=== PATIENT | male | born 1965 | race Caucasian/White ===

== ENCOUNTER 2021-08-01 14:38 | Outpatient (CLI) | payer BC ==
[~2021-08-01 14:38] MED LIST: AMOX500C2 PO; HYDR1CAP2 PO; LSNP20T PO; SIMV40TA4 PO
== END 2021-08-01 15:00 ==
LOC: SLEEP 14:38
PROVIDERS: ATTEND Nurse Practitioner
DX: G47.33 Obstructive sleep apnea (adult) (pediatric) (principal); G47.10 Hypersomnia, unspecified
CPT/HCPCS: G0399

== ENCOUNTER → 2021-08-09 | Outpatient (CLI) | payer BC ==
--- NOTE | 2021-08-09 10:40 | Diagnostic Imaging Report ---
INDICATION: Left knee pain. EXAMINATION: Left knee, 4 views. FINDINGS: Standing views show a uzif-jb-dybr appearance in the medial compartment. There are marked hypertrophic changes along both the medial and lateral femoral condyles. Patellofemoral joint also shows narrowing of the joint space with marked hypertrophic change. No fractures are demonstrated. There is mild chondrocalcinosis. IMPRESSION: Rather severe tricompartmental osteoarthritic changes. No acute abnormality is noted. Dictated by: Dictated on workstation # [id number]
== END ==
LOC: ORTHO 09:12
PROVIDERS: ATTEND Orthopaedic Surgery
DX: M17.12 Unilateral primary osteoarthritis, left knee (principal)
CPT/HCPCS: 73564; G0463; 99203

== ENCOUNTER → 2021-08-12 | Outpatient (CLI) | payer BC ==
[2021-08-12 16:41] LABS: BASOPHILS # (AUTO) 0.1 10^3/uL (0.0-0.1); BASOPHILS % (AUTO) 1 % (0-10); EOSINOPHILS # (AUTO) 0.2 10^3/uL (0.0-0.3); EOSINOPHILS % (AUTO) 2 % (0-10); HEMATOCRIT 43 % (40-54); LYMPHOCYTES # (AUTO) 1.5 X 10^3 (1.0-4.0); LYMPHOCYTES % (AUTO) 18 % (12-44); MEAN CORPUSCULAR HEMOGLOBIN 29 pg (25-34); MEAN CORPUSCULAR HGB CONC 33 g/dL (32-36); MEAN CORPUSCULAR VOLUME 89 fL (80-99); MEAN PLATELET VOLUME 10.3 fL (9.0-12.2); MONOCYTES # (AUTO) 0.9 X 10^3 (0.0-1.0); MONOCYTES % (AUTO) 11 % (0-12); NEUTROPHILS # (AUTO) 5.9 X 10^3 (1.8-7.8); NEUTROPHILS % (AUTO) 69 % (42-75); PLATELET COUNT 257 10^3/uL (130-400); WHITE BLOOD COUNT 8.5 10^3/uL (4.3-11.0)
[2021-08-12 16:50] LABS: POTASSIUM 3.9 MMOL/L (3.6-5.0)
[2021-08-12 16:52] LABS: CALCIUM 9.1 MG/DL (8.5-10.1)
[2021-08-12 16:56] LABS: CREATININE SERUM 0.82 MG/DL (0.60-1.30)
--- NOTE | 2021-08-12 17:02 | Diagnostic Imaging Report ---
INDICATION: Foot pain. EXAMINATION: Left foot, 3 views, on 08/12/2021. FINDINGS: There is soft tissue prominence about the forefoot, nonspecific in nature, with no underlying acute fracture or dislocation appreciated. Narrowing and spurring are seen at the 1st metatarsophalangeal joint. There is plantar calcaneal spurring. IMPRESSION: Nonspecific soft tissue swelling with no acute osseous abnormality. Dictated by: Dictated on workstation # [id number]
[2021-08-12 17:05] LABS: BILIRUBIN,URINE NEGATIVE (NEGATIVE); CLARITY,URINE CLEAR; COLOR,URINE YELLOW; GLUCOSE, URINE (UA) NEGATIVE (NEGATIVE); KETONES,URINE NEGATIVE (NEGATIVE); LEUKOCYTE ESTERASE ,URINE NEGATIVE (NEGATIVE); NITRITE,URINE NEGATIVE (NEGATIVE); PROTEIN,URINE NEGATIVE (NEGATIVE)
--- NOTE | 2021-08-12 17:05 | Diagnostic Imaging Report ---
INDICATION: Preop for left knee surgery. EXAMINATION: PA and lateral views of the chest were obtained at 4:43 p.m. Heart and mediastinal silhouette are normal in appearance. The lungs are clear. There is no pneumothorax or pleural fluid. IMPRESSION: No acute process in the chest. Dictated by: Dictated on workstation # [id number]
[2021-08-12 17:06] LABS: INR 0.9 (0.8-1.4); PROTHROMBIN TIME PATIENT 12.8 SEC (12.2-14.7)
[2021-08-12 17:27] LABS: BACTERIA,URINE NEGATIVE /HPF; SQUAMOUS EPITHELIAL CELL,UR RARE /HPF; WBC,URINE 0-2 /HPF
== END ==
LOC: RT 15:46
PROVIDERS: ATTEND Orthopaedic Surgery
DX: Z01.818 Encounter for other preprocedural examination (principal); M79.672 Pain in left foot; M79.89 Other specified soft tissue disorders
CPT/HCPCS: 36415; 71046; 73630; 80048; 81000; 85025; 85610; 85730

== ENCOUNTER 2021-08-18 08:10 | Outpatient (RCR) | payer BC ==
[~2021-08-18] VITALS: Ht 193.1 cm; Wt 131.5 kg
[2021-08-18] MEDS ORDERED: ROSU5TAB13 PO (08:27)
[2021-08-18] MEDS ORDERED: AMLO-251 PO (08:27)
[2021-08-18 09:09] VITALS: BP 139/80
[2021-08-18] MEDS ORDERED: MV-M1TAB20 PO (09:13)
[2021-08-18] MEDS ORDERED: ACET-2840 PO (09:13)
[2021-08-18] MEDS ORDERED: ZINC (09:13)
[2021-08-18] MEDS ORDERED: METF-397 PO (09:13)
[2021-08-18] MEDS ORDERED: ASPI-999 PO (11:15)
[2021-08-18] MEDS ORDERED: OMEP40CA6 PO (11:15)
[2021-08-18] MEDS ORDERED: METO100T12 PO (11:15)
[2021-08-18] MEDS ORDERED: GBPN600T PO (11:15)
== END 2021-08-19 15:34 | disposition home or self-care (01) ==
LOC: PREOP 08:10 → EDSTATUS 08:30 → PREOP 08-19 15:34
PROVIDERS: ATTEND Orthopaedic Surgery
DX: Z01.812 Encounter for preprocedural laboratory examination (principal); U07.1 COVID-19; M17.12 Unilateral primary osteoarthritis, left knee
CPT/HCPCS: 87636

== ENCOUNTER → 2021-11-03 | Outpatient (CLI) | payer BC ==
[~2021-11-03] MED LIST changes: +ACET-2840 PO; +AMLO-251 PO; +ASPI-999 PO; +GBPN600T PO; +METF-397 PO; +METO100T12 PO; +MV-M1TAB20 PO; +OMEP40CA6 PO; +ROSU5TAB13 PO; +ZINC
[2021-11-03 10:48] LABS: BASOPHILS # (AUTO) 0.1 10^3/uL (0.0-0.1); BASOPHILS % (AUTO) 1 % (0-10); EOSINOPHILS # (AUTO) 0.2 10^3/uL (0.0-0.3); EOSINOPHILS % (AUTO) 2 % (0-10); HEMATOCRIT 43 % (40-54); HEMOGLOBIN 14.2 g/dL (13.3-17.7); LYMPHOCYTES # (AUTO) 1.5 10^3/uL (1.0-4.0); LYMPHOCYTES % (AUTO) 19 % (12-44); MEAN CORPUSCULAR HEMOGLOBIN 29 pg (25-34); MEAN CORPUSCULAR HGB CONC 33 g/dL (32-36); MEAN CORPUSCULAR VOLUME 88 fL (80-99); MEAN PLATELET VOLUME 10.5 fL (9.0-12.2); MONOCYTES % (AUTO) 12 % (0-12); NEUTROPHILS # (AUTO) 5.2 10^3/uL (1.8-7.8); NEUTROPHILS % (AUTO) 65 % (42-75); PLATELET COUNT 222 10^3/uL (130-400)
[2021-11-03 10:57] LABS: BILIRUBIN,URINE NEGATIVE (NEGATIVE); CLARITY,URINE CLEAR; COLOR,URINE YELLOW; GLUCOSE, URINE (UA) NEGATIVE (NEGATIVE); KETONES,URINE NEGATIVE (NEGATIVE); LEUKOCYTE ESTERASE ,URINE NEGATIVE (NEGATIVE); NITRITE,URINE NEGATIVE (NEGATIVE); PROTEIN,URINE NEGATIVE (NEGATIVE)
[2021-11-03 11:02] LABS: BACTERIA,URINE TRACE /HPF; SQUAMOUS EPITHELIAL CELL,UR RARE /HPF
[2021-11-03 11:10] LABS: POTASSIUM 3.7 MMOL/L (3.6-5.0)
[2021-11-03 11:15] LABS: CREATININE SERUM 0.78 MG/DL (0.60-1.30)
== END ==
LOC: LAB 10:25
PROVIDERS: ATTEND Orthopaedic Surgery
DX: M17.12 Unilateral primary osteoarthritis, left knee (principal)
CPT/HCPCS: 36415; 80048; 81000; 85025

== ENCOUNTER 2021-11-10 08:35 | Outpatient (CLI) | payer BC ==
[~2021-11-10] VITALS: Ht 185 cm; Wt 131.5 kg
== END 2021-11-10 08:43 | disposition home or self-care (01) ==
LOC: PREOP 08:35
PROVIDERS: ATTEND Orthopaedic Surgery
DX: Z01.818 Encounter for other preprocedural examination (principal)

== ENCOUNTER 2021-11-21 07:55 | Day surgery (SDC) | payer BC ==
[2021-11-21] VITALS (12 sets, daily range): BP systolic 138–195; BP diastolic 66–127
[~2021-11-21] VITALS: Ht 185 cm; Wt 131.5 kg
[2021-11-21] MEDS ORDERED: TRANEXAMIC ACID 3,000 MG/150 ML NS IRRIGATION IR ONE ×2 (08:30)
[2021-11-21] MEDS ORDERED: ceFAZolin 2 GM/50 ML (PRE-MIXED) IV ONE (08:45)
[2021-11-21] MEDS: LACTATED RINGERS 1,000 ML IV PRN ×2 (09:05→10:50)
[2021-11-21] MEDS ORDERED: fentaNYL INJ 100 MCG/2 ML AMP ONE (09:37)
[2021-11-21] MEDS ORDERED: MIDAZOLAM 2 MG/2 ML (VERSED) VIAL ONE ×2 (09:37→10:29)
[2021-11-21] MEDS ORDERED: METO50TA7 PO (09:56)
[2021-11-21] MEDS ORDERED: LISI40TA9 PO (09:56)
[2021-11-21] MEDS ORDERED: HYDR25TA4 PO (09:56)
[2021-11-21] MEDS ORDERED: BUPIVACAINE 0.5% 30 ML (SENSORCAINE) VIAL ONE (10:11)
--- NOTE | 2021-11-21 10:28 | Progress Note-Pre Operative ---
Pre-Operative Progress Note H&P Reviewed The H&P was reviewed, patient examined and no changes noted. Date Seen by Provider: Nov 21, 2021 Time Seen by Provider: 10:25 Date H&P Reviewed: Nov 21, 2021 Time H&P Reviewed: 10:25 Pre-Operative Diagnosis: Left Knee Primary Osteoarthritis ALEX MARTE MD Nov 21, 2021 10:28
[2021-11-21] MEDS ORDERED: ONDANSETRON 4 MG/2 ML (SDV) Z0FRAN ONE (10:48)
[2021-11-21] MEDS ORDERED: HYDROmorphone 2 MG/ML VIAL (DILAUDID) ONE ×2 (10:57→13:35)
[2021-11-21] MEDS ORDERED: ESMOLOL 100 MG/10 ML (BREVIBLOC) VIAL ONE (10:58)
[2021-11-21] MEDS ORDERED: SEVOFLURANE (ULTANE) 15 ML INHAL SOLN ONE ×2 (11:00→12:53)
[2021-11-21] MEDS ORDERED: proPOfol 200 MG/20 ML (DIPRIVAN) VIAL IV ONE (12:54)
[2021-11-21] MEDS ORDERED: KETOROLAC 30 MG/ML VIAL ONE (13:11)
[2021-11-21] MEDS ORDERED: LABETALOL HCL 20 MG/4 ML VIAL ONE (13:27)
[2021-11-21] MEDS ORDERED: HYDROmorphone 2 MG/ML VIAL (DILAUDID) IV ONE (13:30)
[2021-11-21] MEDS ORDERED: ACETAMINOPHEN 500 MG TAB (TYLENOL) PO PRN (13:30)
[2021-11-21] MEDS ORDERED: MILK OF MAGNESIA 400 MG/5 ML 30 ML UDC PO PRN (13:30)
[2021-11-21] MEDS ORDERED: ONDANSETRON 4 MG/2 ML (SDV) Z0FRAN IV PRN (13:30)
[2021-11-21] MEDS ORDERED: LABETALOL HCL 20 MG/4 ML VIAL IV ONE (13:30)
[2021-11-21] MEDS ORDERED: ONDANSETRON 4 MG/2 ML (SDV) Z0FRAN IVP PRN (13:30)
[2021-11-21] MEDS ORDERED: BISACODYL 5 MG (DULCOLAX) TABLET PO PRN (13:30)
--- NOTE | 2021-11-21 13:40 | Operative Report - Ortho ---
Operative Report Surgeon (s)/Senior Data Analyst (s) Surgeon ALEX MARTE MD Senior Data Analyst n/a Pre-Operative Diagnosis Left Knee Primary Osteoarthritis Post-Operative Diagnosis same Operative Report Date of Procedure: Nov 21, 2021 Name of Procedure Performed: Left Total Knee Arthroplasty Description & Findings After obtaining informed consent and marking the patient in the preoperative holding area, the patient did receive IV antibiotics. Patient was taken to the operating room and anesthesia was induced. Surgical timeout was taken. The left lower extremity was prepped and draped in the usual sterile fashion. Incision was made and carried down to fascia. Arthrotomy was performed on the medial side of the patella. Patella was retracted laterally and knee was flexed. Found to have circumferential osteophtye around the distal femur as well as exposed bone in the medial compartment. Hole was made in the distal femur for the intramedullary distal femoral cutting guide. Resection was made then the femur was sized as a 7. 4-in-1 block for a size [address]. Anterior cut was made and there was no notch. Posterior cut was made followed by the chamfers. Box cut was performed. Lug holes were drilled. Attention was turned to the tibial side, extramedullary tibial guide was put into place and aligned with the tibial crest. It was set to take 2 mm off of the affected medial side. Drop cory was used to confirm alignment. Resection was made and was parallel to the joint line. Tibial bone block was removed. Lamina bunch maker was put into place and the menisci and posterior osteophytes were removed. The knee was trialed with a size 7 femur and a size 7 tibia with a 9 mm poly trial. It was found to come out to full extension and flexed beyond 120 degrees. It was stable to varus and valgus stress throughout its range of motion. This was accepted. Knee was brought out into extension and the patella was prepared for an inset patellar button. Osteophytes were removed from around the perimeter of the patella. Patella tracked well through the trochlear groove of the femur. Trial implants were removed. Tibial tray was pinned and punched. Tibial press fit guide was placed and holes were drilled. The cut bone surfaces were lavaged with pulsatile normal saline. Implants were opened and assembled on the back table. A size 7 press fit tibial component was impacted into place. A size 7 press fit femoral component was impacted into place. Tibial tray was lavaged with saline. A 9 mm thick polyethylene component was locked into placed and the locking mechanism was checked. Knee was brought into extension. Press fit patella component was clamped into place. Betadine soak was performed and then, the knee was irrigated with normal saline. The knee was once again trialed; found to come to full extension, flexed beyond 120 degrees, and was stable to varus and valgus stress. Tourniquet was dropped and electrocautery was used for hemostasis. Fascial layer was closed with #1 Ethibond. The subcutaneous layer was closed with 2-0 Vicryl. The skin was closed with a running subcuticular 3-0 V-loc. Wound was dressed with steri- strips, xeroform, 4x4s, ABD, webril, and HEENA wrap. Patient tolerated the procedure well and was stable to the recovery room. Anesthesia Type General plus regional Estimated Blood Loss 150 mL Specimen(s) collected/removed None ALEX MARTE MD Nov 21, 2021 13:40
--- NOTE | 2021-11-21 13:48 | Diagnostic Imaging Report ---
INDICATION: Total knee arthroplasty. Postoperative check. EXAMINATION: Left knee, 11/21/2021. FINDINGS: Two views of the knee. There is a total knee arthroplasty which appears intact and well aligned. Subcutaneous air with soft tissue swelling and a joint effusion noted consistent with recent surgery. IMPRESSION: 1. Uncomplicated-appearing expected postoperative findings. Dictated by: Dictated on workstation # [id number]
--- NOTE | 2021-11-21 15:27 | Physical Therapy Progress Note ---
Therapy Progress Note CPM donned at 1500. Patient recently got to his room from surgery. CPM fit to patient's leg and set to 45/-1 degrees. Patient instructed in its use. ANTONIO COHEN PT Nov 21, 2021 15:27
[2021-11-21] MEDS: NS IV 1000 ML 1,000 ML IV SCH ×2 (15:42→21:10)
[2021-11-21] MEDS: ASPIRIN E.C. 81 MG (ECOTRIN) TAB PO SCH (15:52)
[2021-11-21] MEDS ORDERED: lisINopril 20 MG (PRINIVIL) TABLET ONE (20:40)
[2021-11-21] MEDS ORDERED: lisINopril 20 MG (PRINIVIL) TABLET PO ONE (20:45)
[2021-11-21] MEDS ORDERED: meTOproloL SUCCINATE 50 MG (TOPROL XL) TAB PO ONE (20:57)
[2021-11-21] MEDS ORDERED: lisINopril 40 MG (PRINIVIL) TABLET ONE (20:58)
[2021-11-21] MEDS: metFORMIN 500 MG (GLUCOPHAGE) TAB PO SCH (21:05)
[2021-11-21] MEDS: ROSUVASTATIN 5 MG (CRESTOR) TABLET PO SCH (21:05)
[2021-11-21] MEDS: CELECOXIB 100 MG (CeleBREX) CAP PO SCH (21:05)
[2021-11-21] MEDS: DOCUSATE SODIUM 100 MG (COLACE) CAP PO SCH (21:05)
[2021-11-21] MEDS: lisINopril 40 MG (PRINIVIL) TABLET PO SCH (21:06)
[2021-11-21] MEDS: meTOproloL SUCCINATE 50 MG (TOPROL XL) TAB PO SCH (21:06)
[2021-11-21] MEDS: ceFAZolin INJECTION 2,000 MG in NS (IVPB) 50 ML IV SCH (21:14)
[2021-11-21] MEDS: morphine INJ 4 MG/ML 1 ML (VIAL/SYRINGE) IVP PRN (23:46)
[2021-11-22 00:11] VITALS: BP 164/84
[2021-11-22 04:12] VITALS: BP 168/90
[2021-11-22] MEDS: ceFAZolin INJECTION 2,000 MG in NS (IVPB) 50 ML IV SCH (04:58)
[2021-11-22] MEDS: MULTIVIT W/MINERALS TAB (THERAGRAN M) PO SCH ×2 (05:33→22:28)
[2021-11-22 05:34] LABS: HEMOGLOBIN 12.2 g/dL (13.3-17.7)
[2021-11-22 07:44] VITALS: BP 155/75
[2021-11-22] MEDS: DOCUSATE SODIUM 100 MG (COLACE) CAP PO SCH ×2 (08:20→20:19)
[2021-11-22] MEDS: CELECOXIB 100 MG (CeleBREX) CAP PO SCH ×2 (08:20→20:19)
[2021-11-22] MEDS: ASPIRIN E.C. 81 MG (ECOTRIN) TAB PO SCH ×2 (08:20→17:38)
[2021-11-22] MEDS: metFORMIN 500 MG (GLUCOPHAGE) TAB PO SCH ×2 (08:20→20:18)
--- NOTE | 2021-11-22 08:29 | Progress Note - Ortho ---
Progress Note Subjective Date of Exam 11/22/21 Chief Complaint POD #1 L TKA HPI/Events since last exam having some difficulty with thigh pain, ambulated and did well with therapy this AM Review of Systems - Allergies: Coded Allergies: No Known Drug Allergies (Unverified , 08/18/21) Home Meds Reported Medications Hydrochlorothiazide (Hydrochlorothiazide) 25 Mg Tablet, 25 MG PO DAILY, TAB 11/21/21 Metoprolol Succinate (Metoprolol Succinate) 50 Mg Tab.er.24h, 50 MG PO DAILY, TAB TAKES IN THE EVENING 11/21/21 Lisinopril (Lisinopril) 40 Mg Tablet, 40 MG PO DAILY, TAB TAKES IN THE EVENING 11/21/21 Acetaminophen (Tylenol 8 Hour) 650 Mg Tablet.er, 1300 MG PO Q8H, TAB 08/18/21 [Zinc] Unknown Strength No Conflict Check 08/18/21 Mv-Mn/Iron/FA/Herbal Cmplx#190 (Vitamin D3 Complete Caplet) 1 Each Tablet, 1 EACH PO HS, TAB 08/18/21 Metformin HCl (Metformin HCl) 500 Mg Tablet, 500 MG PO BID, TAB 08/18/21 Rosuvastatin Calcium (Rosuvastatin Calcium) 5 Mg Tablet, 5 MG PO HS, TAB 08/18/21 Discontinued Reported Medications Amlodipine Besylate (Amlodipine Besylate) 10 Mg Tablet, 10 MG PO DAILY, TAB 08/18/21 Lisinopril (Zestril) 20 Mg Tab, 20 MG PO DAILY 06/18/12 Objective Exam L Knee: Dressing C/D/I, +DF of ankle, no s/s of DVT Vital Signs Vital Signs Date Time Temp Pulse Resp B/P (MAP) Pulse Ox O2 Delivery O2 Flow Rate FiO2 11/22/21 07:44 37.0 90 18 155/75 (101) 95 Room Air 11/22/21 04:12 36.6 106 20 168/90 (116) 97 Room Air 11/22/21 00:30 38.1 11/22/21 00:11 38.0 98 20 164/84 (110) 96 Room Air 11/22/21 00:09 38.1 11/21/21 23:39 38.0 11/21/21 21:10 Room Air 11/21/21 20:23 37.6 94 20 164/84 (110) 97 Room Air 11/21/21 16:37 36.6 83 19 138/66 (90) 95 Room Air 11/21/21 14:16 36.4 75 19 176/93 (120) 94 Room Air 11/21/21 14:15 Room Air 11/21/21 14:15 36.8 18 164/94 (117) 95 Room Air 11/21/21 14:10 Room Air 11/21/21 14:10 18 162/93 (116) 95 Room Air 11/21/21 14:00 18 163/95 (117) 98 Room Air 11/21/21 13:58 OxyMask 2 11/21/21 13:56 OxyMask 4 11/21/21 13:50 18 175/101 (125) 100 OxyMask 4 11/21/21 13:45 OxyMask 6 11/21/21 13:40 18 185/99 (127) 100 OxyMask 6 11/21/21 13:30 OxyMask 6 11/21/21 13:30 18 195/114 (141) 100 OxyMask 6 11/21/21 13:25 18 186/127 (146) 100 OxyMask 6 11/21/21 13:18 OxyMask 6 11/21/21 13:18 36.9 12 186/113 (137) 98 OxyMask 6 I & O 11/22/21 07:00 Intake Total 3931 ml Output Total 3125 ml Balance 806 ml Lab Results Laboratory Tests 11/21/21 08:56: Glucometer 117H 11/22/21 05:17: Hemoglobin 12.2L, Hematocrit 38L Microbiology 11/21/21 MRSA Screen - Final, Complete MRSA not isolated Imaging 2 views of the left knee dated 11/21/21 were reviewed from PACS and demonstrated total knee arthroplasty with appropriate position of components and no complications noted Assessment and Plan Assessment Left Knee Primary OA s/p L TKA Problem List Left Knee Primary OA s/p L TKA Plan DVT Prophylaxis PT/OT Possibly home with home health tomorrow Final Diagonsis Left Knee Primary OA s/p L TKA Level of the visit: Level 3 (postop global) ALEX MARTE MD Nov 22, 2021 08:29
[2021-11-22] MEDS ORDERED: lisINopril 40 MG (PRINIVIL) TABLET PO SCH (09:00)
[2021-11-22] MEDS ORDERED: meTOproloL SUCCINATE 50 MG (TOPROL XL) TAB PO SCH (09:00)
[2021-11-22] MEDS: NS IV 1000 ML 1,000 ML IV SCH (09:34)
--- NOTE | 2021-11-22 09:36 | Occupational Therapy Eval ---
OT Evaluation-General/PLF Medical Diagnosis Admission Date 11/21/21 Medical Diagnosis: L TKA Onset Date: Nov 21, 2021 Therapy Diagnosis Therapy Diagnosis: reduced adl status Precautions Precautions/Isolations: Fall Prevention, Standard Precautions Referral Referral Reason: Evaluation/Treatment Medical History Current History post op day1, s/p L TKA Per patient, he lives with in a single story home. His works during the day but his mother in law and daughter are planning on staying with him post discharge. Pt verbalizes that he was indep with adls and iadls prior to surgery. He was not using any AD at baseline. 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 Reviewed History: Yes Social History Home: Single Level Current Living Status: Spouse ADL-Prior Level of Function SCALE: Activities may be completed with or without assistive devices. 4-Vhuxzbfnkn-zgsfdzu completes the activity by him/herself with no assistance from a helper. 5-Set-up or Clean-up Assistance-helper sets up or cleans up; patient completes activity. [place] assists only prior to or following the activity. 4-Supervision or Touching Assistance-helper provides verbal cues and/or touching/steadying and/or contact guard assistance as patient completes activity. Assistance may be provided throughout the activity or intermittently. 3-Partial/Moderate Assistance-helper does LESS THAN HALF the effort. [place] lifts, holds or supports trunk or limbs, but provides less than half the effort. 2-Substantial/Maximal Assistance-helper does MORE THAN HALF the effort. [place] lifts or holds trunk or limbs and provides more than half the effort. 6-Jkhtgeoia-wztpdh does ALL the effort. Patient does none of the effort to complete the activity. Or, the assistance of 2 or more helpers is required for the patient to complete the activity. If activity was not attempted, code reason: 7-Patient Refused. 9-Not Applicable-not attempted and the patient did not perform the activity before the current illness, exacerbation or injury. 10-Not Attempted due to Environmental Limitations-(lack of equipment, weather restraints, etc.). 88-Not Attempted due to Medical Conditions or Safety Concerns. Self Care: Independent Functional Cognition: Independent DME/Equipment: Bath Chair (reports that his mother in law has a chair that he can use ), Tub/Shower Drive Self: Yes OT Current Status Subjective Pt reports pain as 8/10 in L thigh. He verbalizes that his next pain pill is scheduled for 0930. Appearance Pt returned to sitting in recliner, all needs within reach. Mental Status/Objective Patient Orientation: Person, Place, Time, Situation Attachments: Jaramillo Catheter, IV Current Hand Dominance: Right Upper Extremity ROM WNL Upper Extremity Strength WFL ADL-Treatment Eating (QC): 6 Oral Hygiene (QC): 4 On/Off Footwear (QC): 1 Toileting Hygiene (QC): 4 Pt sitting in recliner at OT arrival. Dependent to don/doff bilateral socks secondary to pain. Anticipate improved performance/independence once pain subsides. Pt was educated on AE if needed post discharge. He stood with SBA, extra time to bring LLE underneath him. He ambulated to/from bathroom with CGA and use of walker, slow but steady gait. Commode placed over toilet for increased height. Heavy use on grab bar when lowering/standing, but no physical assistance needed. Pt attempted to have BM but was unsuccessful. He stood with SBA. No clothing management performed as pt wearing a hospital gown only. However, pt was able to demonstrate ability to remove BUE support from walker and simulate task with steadying assist. Once returned to recliner, OT educated pt on care of incision with bathing tasks. Pt appears to have good understanding. Pt could benefit from short term OT services to address balance, functional transfers, flexibility, endurance and safety needed during functional tasks such as dressing and toileting. Education OT Patient Education: Correct positioning, Progress toward Goal/Update tx plan, Reviewed precautions, Safety issues, Transfer techniques, Use of adapted equipment Teaching Recipient: Patient Teaching Methods: Demonstration, Discussion Response to Teaching: Verbalize Understanding, Return Demonstration, Reinforcement Needed OT Fdc Goals Director Of Casework Services Goals Time Frame: Nov 26, 2021 Oral Hygiene (QC): 6 Toileting Hygiene (QC): 6 Shower/Bathe Self (QC): 4 Upper Body Dressing (QC): 5 Lower Body Dressing (QC): 5 On/Off Footwear (QC): 3 1=Demonstrate adherence to instructed precautions during ADL tasks. 2=Patient will verbalize/demonstrate understanding of assistive devices/modifications for ADL. 3=Patient will improve strength/tolerance for activity to enable patient to perform ADL's. OT Education/Plan Problem List/Assessment Assessment: Decreased Activ Tolerance, Impaired Funct Balance, Impaired I ADL's, Impaired Self-Care Skills Discharge Recommendations Plan/Recommendations: Continue POC Treatment Plan/Plan of Care Treatment,Training & Education: Yes Patient would benefit from OT for education, treatment and training to promote independence in ADL's, mobility, safety and/or upper extremity function for ADL's. Plan of Care: ADL Retraining, Functional Mobility, Group Exercise/Act as Ind, UE Funct Exercise/Act Treatment Duration: Nov 26, 2021 Frequency: 5 times per week Estimated Hrs Per Day: .25 hour per day Agreement: Yes Time/GCodes Start Time: 09:01 Stop Time: 09:27 Total Time Billed (hr/min): 26 Billed Treatment Time 1 visit EVL (10 min) ADL (16 min) Macie Diallo OT Nov 22, 2021 09:36
--- NOTE | 2021-11-22 09:46 | Physical Therapy Evaluation ---
PT Evaluation-General Medical Diagnosis Admission Date November 21, 2021 Medical Diagnosis: L TKA Onset Date: Nov 21, 2021 Therapy Diagnosis Therapy Diagnosis: debility/weakness Precautions Precautions/Isolations: Fall Prevention, Standard Precautions Weight Bear Status Right Lower Extremity: Right Full Weight Bearing Left Lower Extremity: Left Weight Bearing/Tolerated Referral Physician: Roosevelt Reason for Referral: Evaluation/Treatment Medical History Current History s/p elective left TKR Reviewed History: Yes Social History Home: Single Level Current Living Status: Spouse Prior Prior Level of Function SCALE: Activities may be completed with or without assistive devices. 0-Zexmztviio-rvqhnpx completes the activity by him/herself with no assistance from a helper. 5-Set-up or Clean-up Assistance-helper sets up or cleans up; patient completes activity. [place] assists only prior to or following the activity. 4-Supervision or Touching Assistance-helper provides verbal cues and/or touching/steadying and/or contact guard assistance as patient completes activity. Assistance may be provided throughout the activity or intermittently. 3-Partial/Moderate Assistance-helper does LESS THAN HALF the effort. [place] lifts, holds or supports trunk or limbs, but provides less than half the effort. 2-Substantial/Maximal Assistance-helper does MORE THAN HALF the effort. [place] lifts or holds trunk or limbs and provides more than half the effort. 5-Rnpdecqno-zbdqkm does ALL the effort. Patient does none of the effort to complete the activity. Or, the assistance of 2 or more helpers is required for the patient to complete the activity. If activity was not attempted, code reason: 7-Patient Refused. 9-Not Applicable-not attempted and the patient did not perform the activity before the current illness, exacerbation or injury. 10-Not Attempted due to Environmental Limitations-(lack of equipment, weather restraints, etc.). 88-Not Attempted due to Medical Conditions or Safety Concerns. Bed Mobility: 6 Transfers (B,C,W/C): 6 Gait: 6 Stairs: 6 Indoor Mobility (Ambulation): Independent Stairs: Independent Prior Devices Use: None PT Evaluation-Current Subjective Patient agrees to PT. C/o thigh pain with physician notified. Objective Patient Orientation: Normal For Age Attachments: Jaramillo Catheter, Polar Pack, IV ROM/Strength ROM Lower Extremities right LE WFL/left knee flexion 60 degrees with 5 degrees extension Strength Lower Extremities right LE 5/5/left LE 4-/5 grossly Integumentary/Posture Integumentary refer to nursing notes Bowel Incontinence: No Bladder Incontinence: Jaramillo Cath Posture WFL Neuromuscular (Tone, Coordination, Reflexes) grossly intact Sensory Vision: Functional Hearing: Functional Hand Dominance: Right Transfers Roll Left to Right (QC): 4 Sit to Lying (QC): 4 Lying to Sitting/Side of Bed(Q: 4 Sit to Stand (QC): 4 Chair/Nub-zv-Rppgn Xfer(QC): 4 Gait Does the Patient Walk?: Yes Mode of Locomotion: Walk Anticipated Mode of Locomotion: Walk Walk 10 feet (QC): 4 Walk 50 ft with 2 Turns(QC): 4 Walk 150 ft (QC): 4 Distance: 175' Gait Assistive Device: FWW Comments/Gait Description slow, antalgic Balance Sitting Static: Normal Sitting Dynamic: Normal Standing Static: Good Standing Dynamic: Good Treatment bilateral LE exercises 15 reps each AP, HS, SLR, QS (AAROM left LE) Assessment/Needs Patient displays impaired mobility and limited left knee ROM due to edema and pain. Increase activity as tolerated by patient. Rehab Potential: Good PT Retirement Goals Retirement Goals PT Retirement Goals Time Frame: Nov 26, 2021 Roll Left & Right (QC): 6 Sit to Lying (QC): 6 Lying-Sitting on Side/Bed(QC): 6 Sit to Stand (QC): 6 Chair/Odg-hl-Mwtan Xfer(QC): 6 Toilet Transfer (QC): 6 Walk 10 feet (QC): 6 Walk 50ft with 2 Turns (QC): 6 Walk 150 ft (QC): 6 Walking 10ft on Uneven Surface: 6 1 Step (curb) (QC): 6 4 Steps (QC): 6 PT Plan Problem List Problem List: Activity Tolerance, Functional Strength, Safety, Balance, Gait, Transfer, Bed Mobility Treatment/Plan Treatment Plan: Continue Plan of Care Treatment Plan: Bed Mobility, Education, Functional Activity Moni, Functional Strength, Gait, Safety, Therapeutic Exercise, Transfers Treatment Duration: Nov 26, 2021 Frequency: 11 times per week Estimated Hrs Per Day: .5 hour per day Patient and/or Family Agrees t: Yes Time/GCodes Time In: 745 Time Out: 810 Total Billed Treatment Time: 25 Total Billed Treatment 1 visit EVModC 15 min EX 10 min JAYY CHEN PT Nov 22, 2021 09:46
--- NOTE | 2021-11-22 11:07 | Physical Therapy Daily Note ---
PT Daily Note-Current Subjective Patient agrees to PT. He reports he is tired. Pain Numeric Pain Scale: 8 Location: Left Location Body Site: Knee Pain Description: Acute Mental Status Patient Orientation: Normal For Age Transfers SCALE: Activities may be completed with or without assistive devices. 6-Otfgeuunyl-vecggfc completes the activity by him/herself with no assistance from a helper. 5-Set-up or Clean-up Assistance-helper sets up or cleans up; patient completes activity. [place] assists only prior to or following the activity. 4-Supervision or Touching Assistance-helper provides verbal cues and/or touching/steadying and/or contact guard assistance as patient completes activity. Assistance may be provided throughout the activity or intermittently. 3-Partial/Moderate Assistance-helper does LESS THAN HALF the effort. [place] lifts, holds or supports trunk or limbs, but provides less than half the effort. 2-Substantial/Maximal Assistance-helper does MORE THAN HALF the effort. [place] lifts or holds trunk or limbs and provides more than half the effort. 4-Qhbiytabb-aqtjio does ALL the effort. Patient does none of the effort to complete the activity. Or, the assistance of 2 or more helpers is required for the patient to complete the activity. If activity was not attempted, code reason: 7-Patient Refused. 9-Not Applicable-not attempted and the patient did not perform the activity before the current illness, exacerbation or injury. 10-Not Attempted due to Environmental Limitations-(lack of equipment, weather restraints, etc.). 88-Not Attempted due to Medical Conditions or Safety Concerns. Sit to Lying (QC): 3 Sit to Stand (QC): 6 Chair/Mbr-rs-Zzcml Xfer(QC): 6 Weight Bearing Right Lower Extremity: Right Full Weight Bearing Left Lower Extremity: Left Weight Bearing/Tolerated Gait Training Distance: 225' Walk 10 feet (QC): 5 Walk 50 ft with 2 Turns(QC): 5 Walk 150 ft (QC): 5 Gait Assistive Device: FWW slow, antalgic, reciprocal pattern Exercises Supine Ex: Ankle pumps, Quad Set, Heel Slides Supine Reps: 15 Seated Therapy Exercises: Long arc quads (15) Seated Reps: 15 Treatments CPM 0-[address] left LE with polar pack Assessment Patient tolerated treatment well and has been instructed by this PT. to ambulate PRN in hallway and perform exercises. Patient voices understanding. Nursing notified. PT Residential Goals [employer] Goals PT Residential Goals Time Frame: Nov 26, 2021 Roll Left & Right (QC): 6 Sit to Lying (QC): 6 Lying-Sitting on Side/Bed(QC): 6 Sit to Stand (QC): 6 Chair/Xoi-qz-Ioobz Xfer(QC): 6 Toilet Transfer (QC): 6 Walk 10 feet (QC): 6 Walk 50ft with 2 Turns (QC): 6 Walk 150 ft (QC): 6 Walking 10ft on Uneven Surface: 6 1 Step (curb) (QC): 6 4 Steps (QC): 6 PT Plan Treatment/Plan Treatment Plan: Continue Plan of Care Treatment Plan: Bed Mobility, Education, Functional Activity Moni, Functional Strength, Gait, Safety, Therapeutic Exercise, Transfers Treatment Duration: Nov 26, 2021 Frequency: 11 times per week Estimated Hrs Per Day: .5 hour per day Patient and/or Family Agrees t: Yes Time/GCodes Time In: 1035 Time Out: 1058 Total Billed Treatment Time: 23 Total Billed Treatment 1 visit EX 9 min GT 14 min JAYY CHEN PT Nov 22, 2021 11:07
[2021-11-22 11:28] VITALS: BP 155/75
[2021-11-22] MEDS: morphine INJ 4 MG/ML 1 ML (VIAL/SYRINGE) IVP PRN ×2 (14:27→20:18)
[2021-11-22 16:00] VITALS: BP 177/86
[2021-11-22 19:30] VITALS: BP 173/93
[2021-11-22] MEDS: lisINopril 40 MG (PRINIVIL) TABLET PO SCH (20:18)
[2021-11-22] MEDS: ROSUVASTATIN 5 MG (CRESTOR) TABLET PO SCH (20:19)
[2021-11-22] MEDS: meTOproloL SUCCINATE 50 MG (TOPROL XL) TAB PO SCH (20:19)
[2021-11-23] VITALS: BP 160/77
[2021-11-23] MEDS: morphine INJ 4 MG/ML 1 ML (VIAL/SYRINGE) IVP PRN ×2 (01:44→03:56)
[2021-11-23 04:00] VITALS: BP 166/78
[2021-11-23 06:04] LABS: HEMOGLOBIN 12.2 g/dL (13.3-17.7)
[2021-11-23 07:41] VITALS: BP 137/67
[2021-11-23] MEDS: CELECOXIB 100 MG (CeleBREX) CAP PO SCH ×2 (08:27→20:36)
[2021-11-23] MEDS: ASPIRIN E.C. 81 MG (ECOTRIN) TAB PO SCH ×2 (08:27→17:31)
[2021-11-23] MEDS: metFORMIN 500 MG (GLUCOPHAGE) TAB PO SCH ×2 (08:27→20:36)
[2021-11-23] MEDS: DOCUSATE SODIUM 100 MG (COLACE) CAP PO SCH ×2 (08:27→20:37)
--- NOTE | 2021-11-23 10:17 | Occupational Ther Daily Note ---
OT Current Status-Daily Note Subjective Pt continues to report pain as 5/10 in RLE, states pain meds given ~1 hour ago Appearance Pt returned to sitting in recliner, all needs within reach. Mental Status/Objective Patient Orientation: Person, Place, Situation ADL-Treatment Therapy Code Descriptions/Definitions Functional [place] Measure: 0=Not Assessed/NA 4=Minimal Assistance 1=Total Assistance 5=Supervision or Setup 2=Maximal Assistance 6=Modified [place] 3=Moderate Assistance 7=Complete IndependenceSCALE: Activities may be completed with or without assistive devices. 2-Porfwgwftb-oxzgbks completes the activity by him/herself with no assistance from a helper. 5-Set-up or Clean-up Assistance-helper sets up or cleans up; patient completes activity. [place] assists only prior to or following the activity. 4-Supervision or Touching Assistance-helper provides verbal cues and/or touching/steadying and/or contact guard assistance as patient completes activity. Assistance may be provided throughout the activity or intermittently. 3-Partial/Moderate Assistance-helper does LESS THAN HALF the effort. [place] lifts, holds or supports trunk or limbs, but provides less than half the effort. 2-Substantial/Maximal Assistance-helper does MORE THAN HALF the effort. [place] lifts or holds trunk or limbs and provides more than half the effort. 0-Zwtuohwxp-fkaxti does ALL the effort. Patient does none of the effort to complete the activity. Or, the assistance of 2 or more helpers is required for the patient to complete the activity. If activity was not attempted, code reason: 7-Patient Refused. 9-Not Applicable-not attempted and the patient did not perform the activity before the current illness, exacerbation or injury. 10-Not Attempted due to Environmental Limitations-(lack of equipment, weather restraints, etc.). 88-Not Attempted due to Medical Conditions or Safety Concerns. Upper Body Dressing (QC): 5 Lower Body Dressing (QC): 3 (min-mod) Toileting Hygiene (QC): 4 Toilet Transfer (QC): 4 Clothing donned seated in chair. Due to pain and c/o leg feeling "heavy," assist needed to lift RLE off of floor in order for patient to thread foot into clothing. No assist needed to thread LLE. He stood with SBA, steadying assist needed to manage clothing fully over hips. He ambulated to/from bathroom with SBA and use of walker, slow but steady gait. Cues to keep walker on floor during ambulation. Toilet transfer and clothing management performed with SBA from heightened toilet. Pt attempts to have BM but continues to be unsuccessful. Pain appears to be patients main barrier to independence and performance in adls. Education OT Patient Education: Correct positioning, Disease process, Energy conservation, Modified ADL techniques, Progress toward Goal/Update tx plan, Purpose of tx/functional activities, Reviewed precautions, Rehab process, Safety issues, Transfer techniques Teaching Recipient: Patient Teaching Methods: Demonstration, Discussion Response to Teaching: Verbalize Understanding, Return Demonstration OT Senior Care Goals Senior Care Goals Time Frame: Nov 26, 2021 Oral Hygiene (QC): 6 Toileting Hygiene (QC): 6 Shower/Bathe Self (QC): 4 Upper Body Dressing (QC): 5 Lower Body Dressing (QC): 5 On/Off Footwear (QC): 3 1=Demonstrate adherence to instructed precautions during ADL tasks. 2=Patient will verbalize/demonstrate understanding of assistive devices/modifications for ADL. 3=Patient will improve strength/tolerance for activity to enable patient to perform ADL's. OT Education/Plan Problem List/Assessment Assessment: Decreased Activ Tolerance, Impaired I ADL's, Impaired Self-Care Skills Discharge Recommendations Plan/Recommendations: Continue POC Treatment Plan/Plan of Care Treatment,Training & Education: Yes Patient would benefit from OT for education, treatment and training to promote independence in ADL's, mobility, safety and/or upper extremity function for ADL's. Plan of Care: ADL Retraining, Functional Mobility, Group Exercise/Act as Ind, UE Funct Exercise/Act Treatment Duration: Nov 26, 2021 Frequency: 5 times per week Estimated Hrs Per Day: .25 hour per day Agreement: Yes Rehab Potential: Good Time/GCodes Start Time: 09:31 Stop Time: 09:47 Total Time Billed (hr/min): 16 Billed Treatment Time 1 visit ADL Macie Diallo OT Nov 23, 2021 10:17
--- NOTE | 2021-11-23 11:39 | Progress Note - Ortho ---
Progress Note Subjective Date of Exam 11/23/21 Chief Complaint POD #2 L TKA HPI/Events since last exam continued thigh pain, notes stiffness, slow progress with therapy Review of Systems - Allergies: Coded Allergies: No Known Drug Allergies (Unverified , 08/18/21) Home Meds Reported Medications Hydrochlorothiazide (Hydrochlorothiazide) 25 Mg Tablet, 25 MG PO DAILY, TAB 11/21/21 Metoprolol Succinate (Metoprolol Succinate) 50 Mg Tab.er.24h, 50 MG PO DAILY, TAB TAKES IN THE EVENING 11/21/21 Lisinopril (Lisinopril) 40 Mg Tablet, 40 MG PO DAILY, TAB TAKES IN THE EVENING 11/21/21 Acetaminophen (Tylenol 8 Hour) 650 Mg Tablet.er, 1300 MG PO Q8H, TAB 08/18/21 [Zinc] Unknown Strength No Conflict Check 08/18/21 Mv-Mn/Iron/FA/Herbal Cmplx#190 (Vitamin D3 Complete Caplet) 1 Each Tablet, 1 EACH PO HS, TAB 08/18/21 Metformin HCl (Metformin HCl) 500 Mg Tablet, 500 MG PO BID, TAB 08/18/21 Rosuvastatin Calcium (Rosuvastatin Calcium) 5 Mg Tablet, 5 MG PO HS, TAB 08/18/21 Discontinued Reported Medications Amlodipine Besylate (Amlodipine Besylate) 10 Mg Tablet, 10 MG PO DAILY, TAB 08/18/21 Lisinopril (Zestril) 20 Mg Tab, 20 MG PO DAILY 06/18/12 Objective Exam L Knee: Incision C/D/I, some blisters associated with steri-strips, +DF of ankle, no s/s of DVT Vital Signs Vital Signs Date Time Temp Pulse Resp B/P (MAP) Pulse Ox O2 Delivery O2 Flow Rate FiO2 11/23/21 08:00 Room Air 11/23/21 07:41 37.8 106 19 137/67 (90) 96 Room Air 11/23/21 04:00 36.4 93 18 166/78 (107) 96 Room Air 11/23/21 00:00 35.8 96 18 160/77 (104) 95 Room Air 11/22/21 20:46 Room Air 11/22/21 19:30 37.3 114 19 173/93 (119) 94 Room Air 11/22/21 16:00 37.2 92 19 177/86 (116) 98 Room Air I & O 11/23/21 07:00 Intake Total 4350 ml Output Total 4150 ml Balance 200 ml Lab Results Laboratory Tests 11/23/21 05:50: Hemoglobin 12.2L, Hematocrit 38L Microbiology 11/21/21 MRSA Screen - Final, Complete MRSA not isolated Assessment and Plan Assessment Left Knee Primary OA s/p L TKA Problem List Left Knee Primary OA s/p L TKA Plan PT/OT DVT Prophylaxis Plan for home tomorrow Final Diagonsis Left Knee Primary OA s/p L TKALeft Knee Primary OA s/p L TKA Level of the visit: Level 3 (postop global) ALEX MARTE MD Nov 23, 2021 11:39
[2021-11-23 12:03] VITALS: BP 141/80
--- NOTE | 2021-11-23 12:09 | Physical Therapy Daily Note ---
PT Daily Note-Current Subjective Upon arrival, pt was seated in recliner, pt stated that he slept on and off last night. Pt reports that is quad muscle hurts. Pt agrees to PT. After PT session, pt reports pain 7/10. Pain Comment: Pt reports pain, but not rated, at start of session. Mental Status Patient Orientation: Person, Place, Time, Situation Transfers SCALE: Activities may be completed with or without assistive devices. 3-Uahfbmcoio-ycojfsr completes the activity by him/herself with no assistance from a helper. 5-Set-up or Clean-up Assistance-helper sets up or cleans up; patient completes activity. [place] assists only prior to or following the activity. 4-Supervision or Touching Assistance-helper provides verbal cues and/or to uching/steadying and/or contact guard assistance as patient completes activity. Assistance may be provided throughout the activity or intermittently. 3-Partial/Moderate Assistance-helper does LESS THAN HALF the effort. [place] lifts, holds or supports trunk or limbs, but provides less than half the effort. 2-Substantial/Maximal Assistance-helper does MORE THAN HALF the effort. [place] lifts or holds trunk or limbs and provides more than half the effort. 4-Ymschiuaf-jtwest does ALL the effort. Patient does none of the effort to complete the activity. Or, the assistance of 2 or more helpers is required for the patient to complete the activity. If activity was not attempted, code reason: 7-Patient Refused. 9-Not Applicable-not attempted and the patient did not perform the activity before the current illness, exacerbation or injury. 10-Not Attempted due to Environmental Limitations-(lack of equipment, weather restraints, etc.). 88-Not Attempted due to Medical Conditions or Safety Concerns. Sit to Lying (QC): 3 Sit to Stand (QC): 3 Pt required assistance with transfers for the affected leg. Weight Bearing Right Lower Extremity: Right Full Weight Bearing Left Lower Extremity: Left Weight Bearing/Tolerated Gait Training Does the Patient Walk?: Yes Distance: 100' Walk 10 feet (QC): 4 Walk 50 ft with 2 Turns(QC): 4 Gait Persons Needed: 1 Gait Assistive Device: FWW Pt ambulated with a slow, steady GT. Pt was bearing weight through the arms, stating they were getting tired. Pt showed no LOB. Exercises Supine Ex: Ankle pumps, Glut sets, Short Arc Quads Supine Reps: 10 Seated Therapy Exercises: Hip flexion, Hamstring Curls Seated Reps: 10 Treatments Pt performed and completed all Exs listed above. Pt ambulated from room to half way down the chang and back. During tx session, pts doctor arrives to talk with pt and change pts dressing. Once PT was concluded pt was in bed with CPM. Pt had call light and tray in reach and all needs met. As PT was exiting pts room, pts SCALE TANK OPERATOR states that she needs to take his vitals. Assessment Current Status: Good Progress Pt would benefit from continued PT to improve on strength in affected leg, and activity tolerance. PT Senior Care Goals Senior Care Goals PT Wind Energy Mechanic Goals Time Frame: Nov 26, 2021 Roll Left & Right (QC): 6 Sit to Lying (QC): 6 Lying-Sitting on Side/Bed(QC): 6 Sit to Stand (QC): 6 Chair/Tzt-tg-Tehqn Xfer(QC): 6 Toilet Transfer (QC): 6 Walk 10 feet (QC): 6 Walk 50ft with 2 Turns (QC): 6 Walk 150 ft (QC): 6 Walking 10ft on Uneven Surface: 6 1 Step (curb) (QC): 6 4 Steps (QC): 6 PT Plan Problem List Problem List: Activity Tolerance, Functional Strength Treatment/Plan Treatment Plan: Continue Plan of Care Treatment Plan: Bed Mobility, Education, Functional Activity Moni, Functional Strength, Gait, Safety, Therapeutic Exercise, Transfers Treatment Duration: Nov 26, 2021 Frequency: 11 times per week Estimated Hrs Per Day: .5 hour per day Patient and/or Family Agrees t: Yes Safety Risks/Education Patient Education: Transfer Techniques Teaching Recipient: Patient Teaching Methods: Discussion Response to Teaching: Verbalize Understanding Time/GCodes Time In: 1115 Time Out: 1200 Total Billed Treatment Time: 45 Total Billed Treatment 1, EX 2 (30), GT (15) JS CHANG UNIVERSITY ADMINISTRATOR Nov 23, 2021 12:09
[2021-11-23 16:00] VITALS: BP 134/67
[2021-11-23 19:42] VITALS: BP 145/71
[2021-11-23] MEDS: ROSUVASTATIN 5 MG (CRESTOR) TABLET PO SCH (20:36)
[2021-11-23] MEDS: lisINopril 40 MG (PRINIVIL) TABLET PO SCH (20:36)
[2021-11-23] MEDS: meTOproloL SUCCINATE 50 MG (TOPROL XL) TAB PO SCH (20:37)
[2021-11-23] MEDS: MULTIVIT W/MINERALS TAB (THERAGRAN M) PO SCH (21:49)
[2021-11-24 00:16] VITALS: BP 134/73
[2021-11-24 04:18] VITALS: BP 131/71
[2021-11-24 07:50] VITALS: BP 132/72
[2021-11-24] MEDS ORDERED: ASPI-1238 PO (08:37)
[2021-11-24] MEDS ORDERED: OXC5T PO (08:37)
--- NOTE | 2021-11-24 08:40 | Discharge Summary ---
Discharge Summary Hospital Course Hospital Course Date of Admission: Admission Diagnosis : Family Physician/Provider: Date of Discharge: 11/24/21 Discharge Diagnosis: [ Left Knee Primary Osteoarthritis] Hospital Course: [ Admitted on 11/21/21. Underwent left total knee arthroplasty. Tolerated the procedure well and was admitted to the regular floor. On the day of surgery, he did start DVT prophylaxis and therapy/use of the CPM. On POD #1, his pain required IV medication as well as an oral regimen. He made some progress with therapy. On POD #2, he continued to improve from a mobility standpoint. His pain was controlled on oral medication. Arrangements were made for home health. On POD #3, he was ambulating well over 100 feet. He was tolerating a regular diet. He was ready for discharge home.] Labs and Pending Lab Test: Microbiology 11/21/21 MRSA Screen - Final, Complete MRSA not isolated Home Meds Active Aspirin EC (Aspirin) 81 Mg Tablet.dr 81 Mg PO BID WITH MEALS 14 Days Reported Hydrochlorothiazide 25 Mg Tablet 25 Mg PO DAILY Metoprolol Succinate 50 Mg Tab.er.24h 50 Mg PO DAILY TAKES IN THE EVENING Lisinopril 40 Mg Tablet 40 Mg PO DAILY TAKES IN THE EVENING Tylenol 8 Hour (Acetaminophen) 650 Mg Tablet.er 1,300 Mg PO Q8H [Zinc] Unknown Strength Unknown Dose Vitamin D3 Complete Caplet (Mv-Mn/Iron/FA/Herbal Cmplx#190) 1 Each Tablet 1 Each PO HS Metformin HCl 500 Mg Tablet 500 Mg PO BID Rosuvastatin Calcium 5 Mg Tablet 5 Mg PO HS Assessment/Pt Instructions WBAT on Left Leg, walker for assist, dry dressing daily, home health physical therapy Discharge Instructions Discharge Diet: Regular Diet Discharge Physical Examination Vital Signs Vital Signs Date Time Temp Pulse Resp B/P (MAP) Pulse Ox O2 Delivery O2 Flow Rate FiO2 11/24/21 07:50 36.7 87 16 132/72 (92) 94 Room Air 11/21/21 13:58 2 Extremity: Other (Left Knee: Incision C/D/I, some blisters associated with steri-strips distally, +DF, no s/s of DVT) Allergies: Coded Allergies: No Known Drug Allergies (Unverified , 08/18/21) Discharge Summary Date of Admission Date of Discharge AELX MARTE MD Nov 24, 2021 08:40
--- NOTE | 2021-11-24 08:42 | D/C HH Face to Face Order ---
D/C Face to Face Orders Instructions for Patient Via [facility], Patient Instructions/FollowUp: WBAT on Left Leg with walker for assist, dry telfa daily to incision site, home health physical therapy Physician to follow Patient: Isacc Albert Discharge Diet for Home: Regular Diet Patient Data-Allergies,Ht & Wt Patient Allergies: Coded Allergies: No Known Drug Allergies (Unverified , 08/18/21) Home Health Need/Face to Face Date of Face to Face: Nov 24, 2021 Clinical Findings: Muscle weakness, Pain with ambulation I have seen Pt jgah-id-xrzi: Yes Discharged To: Home Diagnosis/Conditions: Left Knee Primary Osteoarthritis s/p L TKA Patient is Homebound due to: Muscle weakness, Pain w/ambulation Homebound Status Due to the above stated illness, injury or surgical procedure (medical condition or diagnosis) and associated clinical findings, the patient is homebound because of his/her inability to leave home except with aid of a supportive device and/or person AND leaving the home requires a considerable and taxing effort or is medically contraindicated. Pt req the following assistanc: Walker Home Health Nursing Orders Home Health Services Order: Physical Therapy-Evaluate & Treat Home Health Infusion Therapy Line Start Date: Nov 21, 2021 Therapy Orders Therapy Orders: Physical Therapy Therapy Specific Orders: Gait training, Increase strength/endurance, Restore ROM Certify Stmt I certify that this patient is under my care and that I, a nurse practitioner or a physician; a anesthesiologist assistant certified working with me, had a face to face encounter that - meets the physician face to face encounter requirements with this patient as dated. ISACC ALBERT MD Nov 24, 2021 08:42
[2021-11-24] MEDS: metFORMIN 500 MG (GLUCOPHAGE) TAB PO SCH (08:57)
[2021-11-24] MEDS: ASPIRIN E.C. 81 MG (ECOTRIN) TAB PO SCH (08:57)
[2021-11-24] MEDS: DOCUSATE SODIUM 100 MG (COLACE) CAP PO SCH (08:57)
[2021-11-24] MEDS: CELECOXIB 100 MG (CeleBREX) CAP PO SCH (08:57)
[2021-11-24 09:27] VITALS: BP 132/72
--- NOTE | 2021-11-24 09:53 | Physical Therapy Daily Note ---
PT Daily Note-Current Subjective Patient agrees to PT. He reports he hasn't had pain medication since 930 last night. RN notified. Pain Numeric Pain Scale: 10-Worst Possible Pain Location: Left Location Body Site: Knee Pain Description: Acute Mental Status Patient Orientation: Normal For Age Transfers SCALE: Activities may be completed with or without assistive devices. 4-Cgnlupxtpa-refiwzv completes the activity by him/herself with no assistance from a helper. 5-Set-up or Clean-up Assistance-helper sets up or cleans up; patient completes activity. [place] assists only prior to or following the activity. 4-Supervision or Touching Assistance-helper provides verbal cues and/or touching/steadying and/or contact guard assistance as patient completes activity. Assistance may be provided throughout the activity or intermittently. 3-Partial/Moderate Assistance-helper does LESS THAN HALF the effort. [place] li fts, holds or supports trunk or limbs, but provides less than half the effort. 2-Substantial/Maximal Assistance-helper does MORE THAN HALF the effort. [place] lifts or holds trunk or limbs and provides more than half the effort. 8-Twwsdumgu-tgxikg does ALL the effort. Patient does none of the effort to complete the activity. Or, the assistance of 2 or more helpers is required for the patient to complete the activity. If activity was not attempted, code reason: 7-Patient Refused. 9-Not Applicable-not attempted and the patient did not perform the activity before the current illness, exacerbation or injury. 10-Not Attempted due to Environmental Limitations-(lack of equipment, weather restraints, etc.). 88-Not Attempted due to Medical Conditions or Safety Concerns. Lying to Sitting/Side of Bed(Q: 6 Sit to Stand (QC): 6 Chair/Jlc-ib-Nedkc Xfer(QC): 6 Weight Bearing Right Lower Extremity: Right Full Weight Bearing Left Lower Extremity: Left Weight Bearing/Tolerated Gait Training Distance: 250' Walk 10 feet (QC): 6 Walk 50 ft with 2 Turns(QC): 6 Walk 150 ft (QC): 6 Walking 10ft/uneven surface-QC: 6 Gait Assistive Device: FWW slow, antalgic Stair Training Stair Training: Handrails/: 2 handrails #of Steps: 4 1 Step (curb) (QC): 4 4 Steps (QC): 4 Exercises Supine Ex: Ankle pumps, Quad Set, Heel Slides (AAROM), Straight leg raise (AAROM) Supine Reps: 15 Seated Therapy Exercises: Long arc quads Seated Reps: 15 (AAROM) Assessment Patient continues to limit left knee ROM due to pain and swelling. Education with patient on pain management with prescribed pain medication and rehab potential. Patient and family voice understanding. Patient requires AAROM with HS, SLR and LAQ. He does utilize right foot/LE to mobilize left LE. Education on left quad activation to perform all activity. PT Wet Plant Operator Goals Senior Living Goals PT Wet Plant Operator Goals Time Frame: Nov 26, 2021 Roll Left & Right (QC): 6 Sit to Lying (QC): 6 Lying-Sitting on Side/Bed(QC): 6 Sit to Stand (QC): 6 Chair/Tfl-bd-Ldxid Xfer(QC): 6 Toilet Transfer (QC): 6 Walk 10 feet (QC): 6 Walk 50ft with 2 Turns (QC): 6 Walk 150 ft (QC): 6 Walking 10ft on Uneven Surface: 6 1 Step (curb) (QC): 6 4 Steps (QC): 6 PT Plan Treatment/Plan Treatment Plan: Discontinue PT Treatment Plan: Bed Mobility, Education, Functional Activity Moni, Functional Strength, Gait, Safety, Therapeutic Exercise, Transfers Treatment Duration: Nov 26, 2021 Frequency: 11 times per week Estimated Hrs Per Day: .5 hour per day Patient and/or Family Agrees t: Yes Time/GCodes Time In: 745 Time Out: 813 Total Billed Treatment Time: 28 Total Billed Treatment 1 visit EX 15 min FA 13 min JAYY CHEN PT Nov 24, 2021 09:53
--- NOTE | 2021-11-24 09:56 | Occ Therapy Progress Note ---
Therapy Progress Note At OT arrival, Pt already dressed and reports that he will be discharging home within the hour. He states that he still needed help getting his pants on this date due to his LLE being too heavy. His daughter was in the room and verbalizes that family will continue to assist post discharge. Re-education on care of incision and importance of continuing exercises and mobility once home. Pt denies any further OT services at this time. 1 visit, 8 minutes Macie Diallo OT Nov 24, 2021 09:56
== END 2021-11-24 09:27 | disposition home or self-care (01) ==
LOC: SDC 07:55 → EDSTATUS 10:00 → 4TH 14:45 → SDC 11-24 09:27
PROVIDERS: ATTEND Orthopaedic Surgery
DX: M17.12 Unilateral primary osteoarthritis, left knee (principal); E66.9 Obesity, unspecified; G47.33 Obstructive sleep apnea (adult) (pediatric); Z68.38 Body mass index [BMI] 38.0-38.9, adult
CPT/HCPCS: 27447; 73560; 82947; 87081; 97799; C1776 ×4

== ENCOUNTER → 2021-12-06 | Outpatient (CLI) | payer BC ==
[~2021-12-06] MED LIST changes: +ASPI-1238 PO; +HYDR25TA4 PO; +LISI40TA9 PO; +METO50TA7 PO; +OXC5T PO
== END ==
LOC: ORTHO 10:02
PROVIDERS: ATTEND Orthopaedic Surgery
DX: Z47.89 Encounter for other orthopedic aftercare (principal); I10 Essential (primary) hypertension; E11.9 Type 2 diabetes mellitus without complications; Z98.890 Other specified postprocedural states

== ENCOUNTER → 2021-12-27 | Outpatient (CLI) | payer BC ==
--- NOTE | 2021-12-27 08:45 | Diagnostic Imaging Report ---
INDICATION: Postop left knee. Time of Exam: 8:41 AM Two views of the left knee demonstrate postop changes of total knee arthroplasty. Prosthetic elements appear to be in good position without fracture or loosening. Bony structures are intact. IMPRESSION: Satisfactory postop left knee. Dictated by: Dictated on workstation # [id number]
== END ==
LOC: ORTHO 08:29
PROVIDERS: ATTEND Orthopaedic Surgery
DX: Z09 Encounter for follow-up examination after completed treatment for conditions other than malignant neoplasm (principal)
CPT/HCPCS: 73560

== ENCOUNTER → 2022-02-07 | Outpatient (CLI) | payer BC | LOC: ORTHO 08:28 | PROVIDERS: ATTEND Orthopaedic Surgery | DX: Z47.89 Encounter for other orthopedic aftercare (principal); I10 Essential (primary) hypertension; E11.9 Type 2 diabetes mellitus without complications; Z98.890 Other specified postprocedural states ==

== ENCOUNTER → 2022-06-15 | Outpatient (CLI) | payer BC ==
[~2022-06-15] MED LIST changes: +HOLD METFORMIN - RECEIVED CONTRAST 20 ML VIAL IV SCH; +IOHEXOL 350 MG/ML 100 ML (OMNIPAQUE 350) VIAL IV ONE; +NS 100 ML (IVPB) BAG IV ONE
--- NOTE | 2022-06-15 10:38 | Diagnostic Imaging Report ---
INDICATION: Persistent hypertension. COMPARISON: None TECHNIQUE: Routine postcontrast CTA of the abdomen was performed. Contrast was injected intravenously timed for optimal opacification of the arterial structures. Multiplanar and 3-D reformats were also created and reviewed. Auto Exposure Controls were utilized during the CT exam to meet ALARA standards for radiation dose reduction. FINDINGS: Included portions of the lung bases are clear. CTA ABDOMEN: Abdominal aorta is normal in course and caliber. There is minimal scattered calcified atherosclerosis. By NASCET criteria, there is no focal significant stenosis. There is no evidence of dissection or aneurysm. There is normal opacification of the celiac trunk and superior mesenteric arteries and their major branches. There is no evidence of thrombosis or focal significant stenosis. There is also normal enhancement of the inferior mesenteric artery. Single renal arteries identified on the right. Multiple accessory renal arteries are present on the left. Main renal artery is seen most superiorly. There is no focal significant atherosclerotic disease of the renal arteries. There is no focal significant stenosis. Kidneys have a normal CT appearance. No suspicious renal masses are identified. There is no evidence of hydronephrosis. Right adrenal nodule measures 1.7 cm and is otherwise incompletely characterized on this postcontrast only exam. Left renal gland, spleen, pancreas, and liver have a normal CT appearance. Gallbladder surgically absent. Normal appendix is identified. Few colonic diverticula are also noted. There is no CT evidence of acute diverticulitis. Included small bowel loops are nondistended. There is no loculated fluid collection, free fluid or free air within the abdomen. No abnormal mesenteric or retroperitoneal adenopathy is seen. Osseous structures show no acute abnormalities. IMPRESSION: 1. No evidence of significant renal arterial atherosclerotic disease or stenosis. 2. Mild scattered calcified aortic atherosclerosis, but no evidence of dissection, focal stenosis, or aneurysm. 3. Incompletely characterized right adrenal nodule. Correlation with dedicated adrenal protocol CT of the abdomen or MRI of the abdomen is advised. Dictated by: Dictated on workstation # [id number]
== END ==
LOC: RAD 07:54
PROVIDERS: ATTEND Family Medicine
DX: I70.0 Atherosclerosis of aorta (principal); I10 Essential (primary) hypertension
CPT/HCPCS: 74175

== ENCOUNTER → 2022-06-30 | Outpatient (CLI) | payer BC ==
[~2022-06-30] MED LIST changes: -HOLD METFORMIN - RECEIVED CONTRAST 20 ML VIAL IV SCH; -IOHEXOL 350 MG/ML 100 ML (OMNIPAQUE 350) VIAL IV ONE; -NS 100 ML (IVPB) BAG IV ONE
== END ==
LOC: CARD 14:30
PROVIDERS: ATTEND Internal Medicine Cardiovascular Disease
DX: I10 Essential (primary) hypertension (principal); I25.10 Atherosclerotic heart disease of native coronary artery without angina pectoris
CPT/HCPCS: 93306

== ENCOUNTER → 2022-10-10 | Outpatient (CLI) | payer BC ==
[~2022-10-10] MED LIST changes: +GADOTERATE 0.5 MMOL/ML (CLARISCAN) 20 ML VIAL IV ONE; +GADOTERATE 0.5 MMOL/ML (CLARISCAN) 5 ML VIAL IV ONE
--- NOTE | 2022-10-10 12:29 | Diagnostic Imaging Report ---
PROCEDURE: MR imaging abdomen with and without contrast. TECHNIQUE: Multiplanar, multisequence MR imaging of the abdomen was performed with and without contrast. INDICATION: Right adrenal mass, indeterminate. FINDINGS: Right adrenal mass at the level of the isthmus at 1.7 x 1.4 cm shows signal dropout and reduced signal on the opposed-phased acquisitions versus the in-phased acquisitions as well as shows signal enhancement and washout characteristics all consistent with benign adenoma. No suspicious adrenal lesion. The left adrenal is unremarkable. There is no kidney mass. There is no hydronephrosis. Liver, spleen, bile ducts, and pancreas are unremarkable. No biliary ductal dilatation. No abdominal lymphadenopathy. No ascites. The aorta is nonaneurysmal. No suspicious marrow signal abnormality. No basilar pleural fluid. IMPRESSION: Benign right adrenal adenoma. No acute or suspicious abnormality at pre and postcontrast-enhanced abdominal MRI. Dictated by: Dictated on workstation # [id number]
== END ==
LOC: RAD 08:18
PROVIDERS: ATTEND Internal Medicine Cardiovascular Disease
DX: D35.01 Benign neoplasm of right adrenal gland (principal)
CPT/HCPCS: 74183

== ENCOUNTER → 2022-10-10 | Outpatient (CLI) | payer BC ==
[~2022-10-10] MED LIST changes: -GADOTERATE 0.5 MMOL/ML (CLARISCAN) 20 ML VIAL IV ONE; -GADOTERATE 0.5 MMOL/ML (CLARISCAN) 5 ML VIAL IV ONE
--- NOTE | 2022-10-10 08:45 | Diagnostic Imaging Report ---
INDICATION: Pain. Post total knee. COMPARISON: 12/27/2021. FINDINGS: The total knee arthroplasty is unchanged in appearance. No acute bony destructive process or periosteal reaction. No osseous or hardware fracture. No appreciable joint effusion or loose body. IMPRESSION: Stable postop total knee arthroplasty. Dictated by: Dictated on workstation # [id number]
== END ==
LOC: ORTHO 08:21
PROVIDERS: ATTEND Orthopaedic Surgery
DX: M25.562 Pain in left knee (principal); Z96.652 Presence of left artificial knee joint
CPT/HCPCS: 73560; G0463; 99213

== ENCOUNTER 2023-05-07 12:11 | Outpatient (RCR) | payer BC ==
[2023-05-07 13:49] LABS: BODY SURFACE AREA 2.62
[2023-05-07 13:50] LABS: CREATININE CRCL 0.87 MG/DL (0.60-1.30)
[2023-05-10 02:09] LABS: URINE VOLUME CAT 2875 mL
== END 2023-05-17 | disposition home or self-care (01) ==
LOC: LAB 12:11
PROVIDERS: ATTEND Internal Medicine Cardiovascular Disease
DX: I10 Essential (primary) hypertension (principal); E78.2 Mixed hyperlipidemia; I25.10 Atherosclerotic heart disease of native coronary artery without angina pectoris
CPT/HCPCS: 36415; 82384; 82570; 82575; 83150; 83497; 84585